=== PATIENT | female | born 1950 | race Caucasian/White ===

== ENCOUNTER 2017-07-02 10:25 | Inpatient (IN) | payer MEDICARE, MEDICAID ==
[~2017-07-02] VITALS: Ht 165.1 cm; Wt 127.0 kg
[~2017-07-02 10:25] MED LIST: AMLO10TA4 PO; FURO-144 PO; HYDR-4077 PO; LOSA50TA21 PO
--- NOTE | 2017-07-02 10:30 | NUR ---
BB PRIVATE AMBULANCE FROM [facility] FOR MALFUNCTIONING CHEST WALL CATH. PT STATES DIALYZED YESTERDAY BUT NOT COMPLETELY. NAD NOTED. PT AAO X3, VSS. RR EVEN AND UNLABORED. DR WAYNE AT BEDSIDE FOR EVAL.
[2017-07-02 10:54] LABS: BASOPHILS # (AUTO) 0.1 /CMM (0.0-0.2); EOSINOPHILS # (AUTO) 0.5 /CMM (0.0-0.7); LYMPHOCYTES # (AUTO) 2.2 /CMM (0.8-4.8); RDW COEFFICIENT OF VARIATION 15.6 (11.5-15.0); WHITE BLOOD COUNT (AUTO) 8.3 K/uL (4.3-11.0)
[2017-07-02 10:55] LABS: BASOPHILS % (AUTO) 0.8 % (0.0-2.0); EOSINOPHILS % (AUTO) 5.4 % (0.0-6.0); HEMATOCRIT 35 % (33-45); HEMOGLOBIN 11.4 g/dL (11.5-14.8); LYMPHOCYTES % (AUTO) 26.3 % (20.0-44.0); MEAN CORPUSCULAR HEMOGLOBIN 30 PG (26.0-33.0); MEAN CORPUSCULAR HGB CONC 33 g/dl (31.0-36.0); MEAN CORPUSCULAR VOLUME 91 fL (82-100); MONOCYTES # (AUTO) 0.8 /CMM (0.1-1.30); NEUTROPHILS # (AUTO) 4.7 /CMM (1.8-8.9); NEUTROPHILS % (AUTO) 58.5 % (43.0-81.0); PLATELET COUNT (AUTO) 254 /CMM (150-450); RED BLOOD CELL COUNT(AUTO) 3.86 MIL/uL (4.0-5.2)
[2017-07-02 11:00] LABS: CALCIUM, SERUM 9.3 mg/dL (8.5-10.1); CREATININE 2.8 mg/dL (0.6-1.3); POTASSIUM 4.3 mmol/L (3.5-5.1)
[2017-07-02 11:05] LABS: INR 0.96 (0.87-1.13)
[2017-07-02] MEDS ORDERED: DEXT15DR6 EACHEYE (11:06)
[2017-07-02] MEDS ORDERED: OMEP20TA5 PO (11:06)
[2017-07-02] MEDS ORDERED: GUAI-959 PO (11:06)
[2017-07-02] MEDS ORDERED: ALLO100T PO (11:06)
[2017-07-02] MEDS ORDERED: SENN-167 PO (11:06)
[2017-07-02] MEDS ORDERED: INSU100V11 SQ (11:06)
[2017-07-02] MEDS ORDERED: DOCU100C36 PO (11:06)
[2017-07-02] MEDS ORDERED: [UNRECOGNIZED DRUG - CODE] MM (11:06)
[2017-07-02] MEDS ORDERED: OLOP2.5D5 EACHEYE (11:06)
[2017-07-02] MEDS ORDERED: METO25TA6 PO (11:06)
[2017-07-02] MEDS ORDERED: FURO40TA5 PO (11:06)
[2017-07-02] MEDS ORDERED: ASPI-1169 PO (11:06)
[2017-07-02] MEDS ORDERED: AMIN30LI2 PO (11:06)
[2017-07-02] MEDS ORDERED: LACT1CAP61 PO (11:06)
[2017-07-02] MEDS ORDERED: ATOR10TA PO (11:06)
[2017-07-02] MEDS ORDERED: ACET-868 PO (11:06)
[2017-07-02] MEDS ORDERED: PENT400T2 PO (11:06)
[2017-07-02] MEDS ORDERED: LACT10SO PO (11:06)
[2017-07-02] MEDS ORDERED: NA P133E RC (11:06)
[2017-07-02] MEDS ORDERED: FOLI0.8T2 PO (11:06)
[2017-07-02] MEDS ORDERED: ONDA4TAB5 PO (11:06)
[2017-07-02] MEDS ORDERED: HYDR100T27 PO (11:06)
[2017-07-02] MEDS ORDERED: INSU3INS6 SQ (11:06)
[2017-07-02] MEDS ORDERED: CHOL100062 PO (11:06)
[2017-07-02 11:07] LABS: ALBUMIN 2.8 g/dL (3.4-5.0); BILIRUBIN,TOTAL 0.2 mg/dL (0.2-1.0); TOTAL PROTEIN, SERUM 7.4 g/dL (6.4-8.2)
--- NOTE | 2017-07-02 11:21 | NUR ---
CALLED [employer], BULK PLANT SUPERVISOR WAS PAGED.
[2017-07-02] MEDS ORDERED: INSULIN REGULAR, HUMAN 100 UNIT/ML 10 ML VIAL ONE (11:28)
[2017-07-02] MEDS ORDERED: INSULIN REGULAR, HUMAN 100 UNIT/ML 10 ML VIAL SQ ONE (11:30)
--- NOTE | 2017-07-02 12:55 | NUR ---
REPORT GIVEN TO PRANEETH BLAIR FOR MALINDA
[2017-07-02] MEDS ORDERED: ACETAMINOPHEN 325 MG TABLET PO PRN ×2 (13:00→13:30)
[2017-07-02] MEDS ORDERED: NA PHOS,M-B/NA PHOS,DI-BA 1 EA ENEMA RC PRN (13:00)
[2017-07-02] MEDS ORDERED: ONDANSETRON HCL/PF 4 MG/2 ML VIAL IVP PRN (13:30)
[2017-07-02] MEDS ORDERED: MAGNESIUM HYDROXIDE 30 ML UDC PO PRN (13:30)
[2017-07-02] MEDS ORDERED: ZOLPIDEM TARTRATE 5 MG TABLET PO PRN (13:30)
[2017-07-02] MEDS ORDERED: Z GUARD REMEDY 2 OZ OINT TP PRN (13:30)
[2017-07-02] MEDS ORDERED: MAG HYDROX/AL HYDROX/SIMETH 30 ML UDC PO PRN (13:30)
[2017-07-02] MEDS ORDERED: HYDROCODONE/APAP 5/325MG 1 EACH TABLET PO PRN (13:30)
--- NOTE | 2017-07-02 13:30 | NUR ---
PATIENT BROUGHT IN FROM ER. NO SOB OR DISTRESS NOTED. PATIENT DENIES PAIN AT THIS TIME. PATIENT ORIENTED TO ROOM AND CALL LIGHT. BELONGINGS CHECKED. BED IN A LOW POSITION, CALL LIGHT WITHIN PATIENT REACH. WILL CONTINUE TO MONITOR.
[2017-07-02] MEDS ORDERED: DEXTROSE 50%-WATER 50 ML DISP.SYRIN IV PRN (14:00)
--- NOTE | 2017-07-02 14:01 | NUR ---
CALLED DR DAMON TO FIND OUT ABOUT PT DIET. STATES TO FOLLOW UP WITH NEPHROLOGY FIRST TO SEE IF THEY WILL BE REPLACING THE DIALYSIS CATH TOADY. CALLED [facility] AND LEFT A MESSAGE WITH DR CLARK. WAITING FOR RETURN CALL.
[2017-07-02] MEDS ORDERED: POLYVINYL ALCOHOL 15 ML BOTTLE EACHEYE PRN (14:30)
[2017-07-02] MEDS ORDERED: LACTULOSE 10 G/15 ML UDC (PYXIS) PO PRN (14:30)
--- NOTE | 2017-07-02 14:44 | NUR ---
AFTER PATIENT HAS CT ABDOMEN, WILL GIVE LACTO MED. Addendum: 07/02/17 at 1445 by PRANEETH ADKINS RN NO CT. WAITING FOR NEPHRO CONSULT
--- NOTE | 2017-07-02 14:51 | NUR ---
CALLED [facility] AGAIN NO MD HAS RETURNED THE CALL. ADVERTISING VICE PRESIDENT STATES SHE WILL PAGE DR GOULD.
[2017-07-02 16:00] VITALS: BP 140/71
[2017-07-02] MEDS: LACTOBACILLUS RHAMNOSUS GG 1 EACH CAP.SPRINK PO SCH (16:27)
[2017-07-02] MEDS: hydrALAZINE HCL 50 MG TABLET PO SCH (16:27)
[2017-07-02] MEDS: METOPROLOL TARTRATE 25 MG TABLET PO SCH (16:28)
[2017-07-02] MEDS: BLOOD SUGAR DIAGNOSTIC 1 EACH STRIP VI SCH ×2 (17:54→21:54)
[2017-07-02] MEDS: INSULIN REGULAR, HUMAN 100 UNIT/ML 3 ML VIAL SQ PRN (17:55)
[2017-07-02] MEDS ORDERED: GUAIFENESIN/D-METHORPHAN HB 5 ML UDC PO PRN (18:00)
[2017-07-02] MEDS ORDERED: ALTEPLASE CATHFLO 2 MG/VIAL IV ONE (18:00)
--- NOTE | 2017-07-02 19:26 | NUR ---
PT NOW RESTING COMFORTABLY IN BED. NO SOB OR DISTRESS. PATIENT REPORTS NO PAIN. BED IN A LOW POSITION, CALL LIGHT WITHIN PATIENT REACH. ENDORSED TO SIOBHAN FOR MALINDA.
--- NOTE | 2017-07-02 19:30 | NUR ---
MS RN NOTE RECEIVED PATIENT AWAKE AND ALERT IN BED. PATIENT DENIES ANY PAIN OR DISCOMFORT. IV SITE INTACT, WITH NO REDNESS NOTED. BED LOCKED AND IN LOWEST POSITION. SIDE RAILS UP, CALL LIGHT WITHIN REACH. WILL CONTINUE TO MONITOR.
[2017-07-02 20:00] VITALS: BP 128/69
--- NOTE | 2017-07-02 20:00 | NUR ---
MS RN NOTE NEW ORDER FROM DR. SEVILLA FOR CONSENT FOR PERMA-CATH PLACEMENT IN AM. WILL PREPARE FORMS AND HAVE PATIENT SIGN. PATIENT WILL BE NPO AFTER MIDNIGHT FOR PROCEDURE.
[2017-07-02] MEDS: PENTOXIFYLLINE 400 MG TABLET.SA PO SCH (21:00)
[2017-07-02] MEDS: *INSULIN REGULAR(HUMULIN R)HUM 100 UNIT/ML VIAL SQ PRN (21:49)
[2017-07-02] MEDS: INSULIN DETEMIR 100 UNIT/ML CARTRIDGE SQ SCH (21:51)
[2017-07-02] MEDS: DOCUSATE SODIUM 100 MG CAPSULE PO SCH (21:54)
[2017-07-02] MEDS: ATORVASTATIN 10 MG TABLET PO SCH (21:54)
[2017-07-02 22:00] VITALS: BP 128/69
[2017-07-03] MEDS: BLOOD SUGAR DIAGNOSTIC 1 EACH STRIP VI SCH ×4 (06:29→22:25)
[2017-07-03] MEDS ORDERED: LIDOCAINE 1% INJ 50 ML MDV IJ ONE (06:34)
[2017-07-03] MEDS ORDERED: HEPARIN SODIUM, PORCINE 1,000 UNIT/ML VIAL ONE (06:34)
[2017-07-03] MEDS ORDERED: ANESTHESIA TRAY IN PYXIS 1 EA TRAY MC ONE (06:34)
--- NOTE | 2017-07-03 06:34 | NUR ---
MS RN NOTE PATIENT STABLE. SHE HAS BEEN NPO SINCE MIDNIGHT FOR PERMA-CATH PLACEMENT. CONSENTS SIGNED AND PLACED IN CHART. BLOOD SUGAR 112. NO COVERAGE NEEDED. ALL NEEDS MET AND ATTENDED TO. WILL ENDORSE TO DAY SHIFT FOR MALINDA.
--- NOTE | 2017-07-03 06:40 | NUR ---
MS RN NOTE PATIENT LEFT FOR PERMA-CATH PLACEMENT IN STABLE CONDITION.
[2017-07-03 06:56] LABS: BASOPHILS # (AUTO) 0.1 /CMM (0.0-0.2); BASOPHILS % (AUTO) 0.6 % (0.0-2.0); EOSINOPHILS # (AUTO) 0.4 /CMM (0.0-0.7); EOSINOPHILS % (AUTO) 4.8 % (0.0-6.0); HEMATOCRIT 34 % (33-45); LYMPHOCYTES # (AUTO) 3.1 /CMM (0.8-4.8); LYMPHOCYTES % (AUTO) 33.4 % (20.0-44.0); MEAN CORPUSCULAR HEMOGLOBIN 30 PG (26.0-33.0); MEAN CORPUSCULAR HGB CONC 33 g/dl (31.0-36.0); MEAN CORPUSCULAR VOLUME 92 fL (82-100); MONOCYTES # (AUTO) 0.8 /CMM (0.1-1.30); MONOCYTES % (AUTO) 9.1 % (2.0-12.0); NEUTROPHILS # (AUTO) 4.9 /CMM (1.8-8.9); NEUTROPHILS % (AUTO) 52.1 % (43.0-81.0); PLATELET COUNT (AUTO) 250 /CMM (150-450); RDW COEFFICIENT OF VARIATION 16.3 (11.5-15.0); RED BLOOD CELL COUNT(AUTO) 3.66 MIL/uL (4.0-5.2); WHITE BLOOD COUNT (AUTO) 9.3 K/uL (4.3-11.0)
[2017-07-03] MEDS ORDERED: FENTANYL PF 100MCG/2ML AMPUL ONE (06:58)
[2017-07-03 07:01] LABS: INR 0.97 (0.87-1.13); PROTHROMBIN TIME 10.1 SECS (9.5-12.7)
[2017-07-03 07:11] LABS: ALBUMIN 2.6 g/dL (3.4-5.0); BILIRUBIN,TOTAL 0.2 mg/dL (0.2-1.0); CALCIUM, SERUM 9.4 mg/dL (8.5-10.1); CREATININE 3.2 mg/dL (0.6-1.3); MAGNESIUM 1.9 mg/dL (1.8-2.4); PHOSPHORUS 4.2 mg/dL (2.5-4.9); POTASSIUM 3.7 mmol/L (3.5-5.1); TOTAL PROTEIN, SERUM 6.8 g/dL (6.4-8.2)
[2017-07-03 07:14] LABS: THYROID STIMULATING HORMONE 3.303 uIU/mL (0.358-3.74)
[2017-07-03 08:00] VITALS: BP 126/63
--- NOTE | 2017-07-03 08:24 | NUR ---
MS RN NOTES PT BACK FROM PROCEDURE IN STABLE CONDITION. VITALS WNL. PERMCATH NOTED ON RIGHT UPPER CHEST WALL. DRESS INTACT. WILL CONTINUE TO MONITOR
[2017-07-03] MEDS: AMLODIPINE BESYLATE 10 MG TABLET PO SCH (09:00)
[2017-07-03] MEDS: hydrALAZINE HCL 50 MG TABLET PO SCH ×2 (09:00→16:23)
[2017-07-03] MEDS: METOPROLOL TARTRATE 25 MG TABLET PO SCH ×2 (09:00→16:24)
[2017-07-03] MEDS: PENTOXIFYLLINE 400 MG TABLET.SA PO SCH ×2 (09:00→21:48)
--- NOTE | 2017-07-03 09:00 | NUR ---
RN NOTE RECEIVED REPORT FROM JOHNNIE MILLER. PATIENT IS COMFORTABLE RESTING IN BED AT THIS TIME. WILL CONTINUE TO MONITOR THROUGHOUT SHIFT
--- NOTE | 2017-07-03 09:10 | NUR ---
MS RN NOTE PATIENT WILL HAVE DIALYSIS TODAY. HELD BP MEDS
[2017-07-03] MEDS: CHOLECALCIFEROL 1,000 UNIT TABLET (VIT D3) PO SCH (10:09)
[2017-07-03] MEDS: ASPIRIN 81 MG TAB.CHEW PO SCH (10:09)
[2017-07-03] MEDS: VIT B CMPLX 3/FA/VIT C/BIOTIN 1 TAB TABLET PO SCH (10:09)
[2017-07-03] MEDS: DOCUSATE SODIUM 100 MG CAPSULE PO SCH ×2 (10:09→21:49)
[2017-07-03] MEDS: ALLOPURINOL 100 MG TABLET PO SCH (10:09)
[2017-07-03] MEDS: LACTOBACILLUS RHAMNOSUS GG 1 EACH CAP.SPRINK PO SCH (10:09)
[2017-07-03] MEDS: INSULIN DETEMIR 100 UNIT/ML CARTRIDGE SQ SCH ×2 (10:19→21:52)
[2017-07-03] MEDS ORDERED: SENNOSIDES 8.6 MG TABLET PO PRN (11:00)
[2017-07-03] MEDS: diphenhydrAMINE HCL ELIX 25 MG/10 ML UDC PO PRN ×2 (11:59→22:22)
[2017-07-03] MEDS: INSULIN REGULAR, HUMAN 100 UNIT/ML 3 ML VIAL SQ PRN ×2 (12:11→17:01)
[2017-07-03] MEDS ORDERED: OLOPATADINE HCL 0.1% OPHTH BOTTLE EACHEYE PRN (13:00)
[2017-07-03 16:00] VITALS: BP 158/78
--- NOTE | 2017-07-03 16:26 | NUR ---
MS RN NOTE HELD BP MEDS. WILL HAVE DIALYSIS
[2017-07-03] MEDS: SENNOSIDES 8.6 MG TABLET PO PRN (16:57)
--- NOTE | 2017-07-03 19:04 | NUR ---
MS RN CLOSING NOTE PATIENT IS ALERT AND ORIENTED x4. NO PAIN AT THIS TIME. NO SOB OR DISTRESS NOTED. CALL LIGHT WITHIN REACH AT ALL TIMES. SAFETY MEASURES IMPLEMENTED. ABLE TO COMMUNICATE NEEDS. HAD PHYSICAL THERAPY TODAY WOULD NEED MAXIMUM ASSISTANCE. ALL DUE MEDICATIONS GIVEN ORDERED. ALL NURSING CARE NEEDS ATTENDED TO NEEDED. CURRENTLY RECEIVING DIALYSIS AT THIS TIME. IV INTACT AND PATENT NO REDNESS OR SWELLING. S/P PERMCATH REPLACEMENT DONE BY DR. SEVILLA 07/03. POSSIBLE DISCHARGE TOMORROW. WILL ENDORSE TO PATIENT ACCOUNTS MANAGER NURSE FOR MALINDA
[2017-07-03 20:00] VITALS: BP 148/77
--- NOTE | 2017-07-03 20:03 | NUR ---
MS2/RN PATIENT IS AWAKE, ALERT, ORIENTED, COMFORTABLE, NO C/O PAIN, NO DISTRESS NOTED, HD IN PROGRESS AT THIS TIME, WILL MONITOR.
--- NOTE | 2017-07-03 21:20 | NUR ---
MS2/SENIOR MARKETING ASSOCIATE IS FINISHED AT THIS TIME. PATIENT IS STABLE. WILL CONTINUE TO MONITOR.
--- NOTE | 2017-07-03 21:26 | NUR ---
Patient resides at [facility] rehab [phone]. She gets her hemodialysis at [facility] dialysis in [facility] every TTHS [phone]. Patient is alert, she requires min-mod assist with adl's. Procedure done today- Removal of old Perm-A-Cath and insertion of a new right IJ Perm-A-Cath tunneled. Plan to dc back to [facility] once discharge. Addendum: 07/03/17 at 2126 by DANELLE HAIDER RN Amended: Links added.
[2017-07-03] MEDS: ATORVASTATIN 10 MG TABLET PO SCH (21:49)
[2017-07-03] MEDS: *INSULIN REGULAR(HUMULIN R)HUM 100 UNIT/ML VIAL SQ PRN (21:51)
--- NOTE | 2017-07-03 22:25 | NUR ---
MS2/RN BENADRYL 10 MLS PO WAS GIVEN FOR C/O ITCHING. WILL CONTINUE TO MONITOR.
--- NOTE | 2017-07-03 23:59 | NUR ---
MS2/RN PATIENT IS SLEEPING AT THIS TIME, AROUSABLE, APPEAR COMFORTABLE, NO SIGNS OF DISTRESS NOTED, CALL LIGHT IN REACH, WILL CONTINUE TO MONITOR.
[2017-07-04] MEDS: INSULIN REGULAR, HUMAN 100 UNIT/ML 3 ML VIAL SQ PRN ×2 (06:35→12:18)
[2017-07-04] MEDS: BLOOD SUGAR DIAGNOSTIC 1 EACH STRIP VI SCH ×2 (06:38→12:16)
--- NOTE | 2017-07-04 06:43 | NUR ---
MS2/RN ACCU CHECK WAS DONE AND COVERED PER SLIDING SCALE. PATIENT SLEEPING BUT EASILY AROUSABLE, NO S/S OF HYPERGLYCEMIA, NO DISTRESS NOTED, ALL NEEDS ATTENDED AT THIS TIME. WILL CONTINUE TO MONITOR.
--- NOTE | 2017-07-04 07:10 | NUR ---
MS RN OPENING NOTES RECEIVED PT FROM NIGHTSHIFT NURSE IN STABLE CONDITION. PT IS A/O X3,. NO SOB OR SIGNS OF DISTRESS NOTED. BREATHING IS EVEN AND UNLABORED. PT IS ON RA AND SATING WELL ABOVE 92%. PERMACATH NOTED TO RIGHT UPPER CHEST WALL. DRESSING CLEAN AND INTACT. IV NOTED TO RIGHT AC HL. IV IS PATENT AND INTACT. NO REDNESS OR SIGNS OF INFILTRATION NOTED. BED IN LOW LOCKED POSITION, SIDE RAILS UP X3, CALL LIGHT WITHIN REACH. WILL CONTINUE TO MONITOR.
[2017-07-04 08:06] VITALS: BP 151/62
[2017-07-04] MEDS: diphenhydrAMINE HCL ELIX 25 MG/10 ML UDC PO PRN (09:22)
[2017-07-04] MEDS: INSULIN DETEMIR 100 UNIT/ML CARTRIDGE SQ SCH (09:22)
[2017-07-04] MEDS: CHOLECALCIFEROL 1,000 UNIT TABLET (VIT D3) PO SCH (10:50)
[2017-07-04] MEDS: PENTOXIFYLLINE 400 MG TABLET.SA PO SCH (10:50)
[2017-07-04] MEDS: DOCUSATE SODIUM 100 MG CAPSULE PO SCH (10:50)
[2017-07-04] MEDS: AMLODIPINE BESYLATE 10 MG TABLET PO SCH (10:56)
[2017-07-04] MEDS: VIT B CMPLX 3/FA/VIT C/BIOTIN 1 TAB TABLET PO SCH (10:57)
[2017-07-04] MEDS: METOPROLOL TARTRATE 25 MG TABLET PO SCH (10:57)
[2017-07-04 10:58] VITALS: BP 177/88
[2017-07-04] MEDS: LACTOBACILLUS RHAMNOSUS GG 1 EACH CAP.SPRINK PO SCH (10:58)
[2017-07-04] MEDS: ASPIRIN 81 MG TAB.CHEW PO SCH (10:58)
[2017-07-04] MEDS: hydrALAZINE HCL 50 MG TABLET PO SCH (10:58)
[2017-07-04] MEDS: ALLOPURINOL 100 MG TABLET PO SCH (10:59)
[2017-07-04] MEDS: SENNOSIDES 8.6 MG TABLET PO PRN (11:06)
--- NOTE | 2017-07-04 11:44 | NUR ---
WOUND CARE CONSULT: PT PRESENTS WITH BILATERAL HEEL ESCHARS AND LEFT LATERAL HEEL SCARRING, PRESENT ON ADMISSION. RECOMMENDATIONS MADE FOR SKIN PROTECTION. DISCUSSED WITH NURSING STAFF. PT STATES HAD GRAFTING SURGERIES ON FEET. WILL SEE PRN. PEREIRA IN AGREEMENT WITH PLAN OF CARE. Addendum: 07/04/17 at 1146 by JOCELIN TAMAYO WNDNU Amended: Links added.
--- NOTE | 2017-07-04 15:45 | NUR ---
MS RN NOTES PT WAS DISCHARGED FROM FACILITY IN STABLE CONDITION. ALL NEEDS WERE MET DURING SHIFT AND ORDERS CARRIED OUT ACCORDINGLY. DISCHARGE INSTRUCTIONS USING EXITCARE PROVIDED TO PATIENT. PT VERBALIZED UNDERSTANDING OF ALL DISCHARGE INSTRUCTIONS AND SIGNED RESPECTIVE PAPERWORK. ALL BELONGINGS WERE TAKEN BY PT. IV SUCCESSFULLY REMOVED WITHOUT ANY ADVERSE COMPLICATION. PERMACATH DRESSING CLEAN AND INTACT. NO REDNESS OR SIGNS OF INFILTRATION NOTED TO OR AROUND SITE. REPORT CALLED AND GIVEN TO STEF SILVA ADMITTING RN AT [facility]. PT LEFT VIA AMBULANCE TRANSPORT IN STABLE CONDITION.
== END 2017-07-04 15:45 | DRG 314 ==
LOC: ER 10:28 → MEDSG2 13:11
PROVIDERS: ADMIT Internal Medicine; ATTEND Internal Medicine
PROC: 5A1D70Z Performance of Urinary Filtration, Intermittent, Less than 6 Hours Per Day (ICD-10-PCS; principal; 2017-07-02)
PROC: 05PY33Z Removal of Infusion Device from Upper Vein, Percutaneous Approach (ICD-10-PCS; 2017-07-03)
PROC: 05HM33Z Insertion of Infusion Device into Right Internal Jugular Vein, Percutaneous Approach (ICD-10-PCS; 2017-07-03)
PROC: B513YZA Fluoroscopy of Right Jugular Veins using Other Contrast, Guidance (ICD-10-PCS; 2017-07-03)
DX: T82.41XA Breakdown (mechanical) of vascular dialysis catheter, initial encounter (principal); N18.6 End stage renal disease; I12.0 Hypertensive chronic kidney disease with stage 5 chronic kidney disease or end stage renal disease; E46 Unspecified protein-calorie malnutrition; E11.22 Type 2 diabetes mellitus with diabetic chronic kidney disease; E11.40 Type 2 diabetes mellitus with diabetic neuropathy, unspecified; Z68.42 Body mass index [BMI] 45.0-49.9, adult; M10.9 Gout, unspecified; Z79.4 Long term (current) use of insulin; Z99.2 Dependence on renal dialysis; D63.8 Anemia in other chronic diseases classified elsewhere; E78.5 Hyperlipidemia, unspecified; E11.621 Type 2 diabetes mellitus with foot ulcer; L97.509 Non-pressure chronic ulcer of other part of unspecified foot with unspecified severity; Y92.129 Unspecified place in nursing home as the place of occurrence of the external cause; Y84.8 Other medical procedures as the cause of abnormal reaction of the patient, or of later complication, without mention of misadventure at the time of the procedure; Y82.8 Other medical devices associated with adverse incidents
CPT/HCPCS: 36415; 71010-TC; 80053-TC; 80061-TC; 82746; 82962-TC; 83540-TC; 83735-TC; 84100-TC; 84443-TC; 85025-TC; 85730-TC; 87040-TC; 87081-TC; 90935-TC; 93307-TC; A4606; A6402; C1750; J1100; J1644; J1815; J2405; J2704; J2997; J3010; J3490; Q0163; Z7610

== ENCOUNTER 2019-02-02 16:56 | Inpatient (IN) | payer MEDICARE, MEDICAID ==
[~2019-02-02] VITALS: Ht 170.2 cm; Wt 106.8 kg
[~2019-02-02 16:56] MED LIST changes: +ACET-868 PO; +ALLO100T PO; +AMIN30LI2 PO; +ASPI-1169 PO; +ATOR10TA PO; +CHOL100062 PO; +DEXT15DR6 EACHEYE; +DOCU100C36 PO; +FOLI0.8T2 PO; -FURO-144 PO; +FURO40TA5 PO; +GUAI-959 PO; -HYDR-4077 PO; +HYDR100T27 PO; +INSU100V11 SQ; +INSU3INS6 SQ; +LACT10SO PO; +LACT1CAP61 PO; -LOSA50TA21 PO; +METO25TA6 PO; +NA P133E RC; +OLOP2.5D5 EACHEYE; +OMEP20TA5 PO; +ONDA4TAB5 PO; +PENT400T17 PO; +SENN-168 PO; +[UNRECOGNIZED DRUG - CODE] MM
[2019-02-02] MEDS ORDERED: ALPR0.255 PO (17:26)
[2019-02-02] MEDS ORDERED: HYDROMORPHONE INJ 2 MG/ML DISP.SYRIN IV ONE (17:30)
[2019-02-02] MEDS ORDERED: ONDANSETRON HCL/PF 4 MG/2 ML VIAL IVP ONE (17:30)
[2019-02-02] MEDS ORDERED: ONDANSETRON HCL/PF 4 MG/2 ML VIAL ONE (17:35)
[2019-02-02] MEDS ORDERED: HYDROMORPHONE 1 MG/1 ML DISP.SYRIN ONE (17:35)
[2019-02-02 17:39] LABS: BASOPHILS % (AUTO) 0.2 % (0.0-2.0); EOSINOPHILS % (AUTO) 0.7 % (0.0-6.0); HEMATOCRIT 29 % (33-45); HEMOGLOBIN 8.9 g/dL (11.5-14.8); LYMPHOCYTES % (AUTO) 6.3 % (20.0-44.0); MEAN CORPUSCULAR HGB CONC 30 g/dl (31.0-36.0); MEAN CORPUSCULAR VOLUME 94 fL (82-100); MONOCYTES # (AUTO) 0.9 /CMM (0.1-1.30); MONOCYTES % (AUTO) 5.8 % (2.0-12.0); NEUTROPHILS # (AUTO) 13.7 /CMM (1.8-8.9); PLATELET COUNT (AUTO) 629 /CMM (150-450); RED BLOOD CELL COUNT(AUTO) 3.11 MIL/uL (4.0-5.2); WHITE BLOOD COUNT (AUTO) 15.8 K/uL (4.3-11.0)
[2019-02-02] MEDS ORDERED: LUBI24CA5 PO (17:39)
[2019-02-02] MEDS ORDERED: LEVO25TA7 PO (17:39)
[2019-02-02] MEDS ORDERED: [UNRECOGNIZED DRUG - CODE] RIGHTEYE (17:39)
[2019-02-02] MEDS ORDERED: APIX5TAB PO (17:39)
[2019-02-02] MEDS ORDERED: SACC250C PO (17:39)
[2019-02-02] MEDS ORDERED: FAMO20TA8 PO (17:39)
[2019-02-02] MEDS ORDERED: BISA10SU61 RC (17:39)
[2019-02-02 17:47] LABS: CALCIUM, SERUM 9.1 mg/dL (8.5-10.1); CREATININE 4.2 mg/dL (0.6-1.3); POTASSIUM 4.6 mmol/L (3.5-5.1)
[2019-02-02] MEDS ORDERED: PRED5DRO16 RIGHTEYE (17:47)
[2019-02-02] MEDS ORDERED: ESCI10TA PO (17:47)
[2019-02-02] MEDS ORDERED: HYDR-4384 PO (17:47)
[2019-02-02] MEDS ORDERED: POLY17PO4 PO (17:47)
[2019-02-02] MEDS ORDERED: SEVE800T8 PO (17:47)
[2019-02-02 17:52] LABS: BILIRUBIN,DIRECT 0.1 mg/dL (0.0-0.2); BILIRUBIN,TOTAL 1.4 mg/dL (0.2-1.0); TOTAL PROTEIN, SERUM 5.9 g/dL (6.4-8.2)
[2019-02-02 17:54] LABS: ALBUMIN 1.3 g/dL (3.4-5.0)
[2019-02-02] MEDS ORDERED: VANCOMYCIN 1 GM in IV D5W 250 ML IV ONE (18:30)
[2019-02-02] MEDS ORDERED: ZOLPIDEM TARTRATE 5 MG TABLET PO PRN (19:00)
[2019-02-02] MEDS ORDERED: MAG HYDROX/AL HYDROX/SIMETH 30 ML UDC PO PRN (19:00)
[2019-02-02] MEDS ORDERED: MAGNESIUM HYDROXIDE 30 ML UDC PO PRN (19:00)
[2019-02-02] MEDS ORDERED: ONDANSETRON HCL/PF 4 MG/2 ML VIAL IVP PRN (19:00)
[2019-02-02] MEDS ORDERED: Z GUARD REMEDY 2 OZ OINT TP PRN (19:00)
[2019-02-02] MEDS ORDERED: ACETAMINOPHEN 325 MG TABLET PO PRN (19:00)
[2019-02-02] MEDS ORDERED: Medication Not On Formulary EA (Ondansetron Hcl (Zofran) 4 MG) PO SCH (20:00)
[2019-02-02] MEDS ORDERED: POLYVINYL ALCOHOL 15 ML BOTTLE EACHEYE PRN (20:30)
[2019-02-02] MEDS ORDERED: LACTULOSE 10 G/15 ML UDC (PYXIS) PO PRN (20:30)
[2019-02-02 20:45] VITALS: BP 129/77
[2019-02-02] MEDS ORDERED: CEFTRIAXONE 1 G in IV D5W 50 ML IV SCH (21:00)
[2019-02-02 22:10] VITALS: BP 129/77
[2019-02-02] MEDS ORDERED: CEFTRIAXONE 1 G VIAL ONE (22:25)
[2019-02-02] MEDS: DOCUSATE SODIUM 100 MG CAPSULE PO SCH (22:48)
[2019-02-02] MEDS: ATORVASTATIN 10 MG TABLET PO SCH (22:48)
[2019-02-02] MEDS: HYDROCODONE/APAP 5/325MG 1 EACH TABLET PO PRN (22:49)
[2019-02-02] MEDS: INSULIN GLARGINE, 100 UNIT/ML CARTRIDGE SQ SCH (23:20)
[2019-02-03] MEDS ORDERED: INSULIN GLARGINE, 100 UNIT/ML CARTRIDGE SQ ONE (00:37)
[2019-02-03 06:59] LABS: BASOPHILS # (AUTO) 0.1 /CMM (0.0-0.2); BASOPHILS % (AUTO) 0.4 % (0.0-2.0); EOSINOPHILS % (AUTO) 2.6 % (0.0-6.0); HEMATOCRIT 28 % (33-45); HEMOGLOBIN 8.5 g/dL (11.5-14.8); LYMPHOCYTES # (AUTO) 1.5 /CMM (0.8-4.8); LYMPHOCYTES % (AUTO) 9.4 % (20.0-44.0); MEAN CORPUSCULAR HGB CONC 30 g/dl (31.0-36.0); MEAN CORPUSCULAR VOLUME 95 fL (82-100); MONOCYTES # (AUTO) 1.1 /CMM (0.1-1.30); MONOCYTES % (AUTO) 7.3 % (2.0-12.0); NEUTROPHILS # (AUTO) 12.5 /CMM (1.8-8.9); NEUTROPHILS % (AUTO) 80.3 % (43.0-81.0); PLATELET COUNT (AUTO) 549 /CMM (150-450); RED BLOOD CELL COUNT(AUTO) 2.96 MIL/uL (4.0-5.2); WHITE BLOOD COUNT (AUTO) 15.6 K/uL (4.3-11.0)
[2019-02-03 07:22] LABS: CALCIUM, SERUM 9.1 mg/dL (8.5-10.1); CREATININE 4.5 mg/dL (0.6-1.3); MAGNESIUM 2.6 mg/dL (1.8-2.4); PHOSPHORUS 5.9 mg/dL (2.5-4.9); POTASSIUM 4.4 mmol/L (3.5-5.1)
[2019-02-03] MEDS ORDERED: PANTOPRAZOLE 40 MG TABLET.DR PO SCH (07:30)
[2019-02-03] MEDS: ALPRAZOLAM 0.25 MG TABLET PO SCH ×3 (07:39→17:22)
[2019-02-03] MEDS: LEVOTHYROXINE SODIUM 25 MCG TABLET PO SCH (07:39)
[2019-02-03] MEDS: MORPHINE SULFATE INJ 2 MG/ML DISP.SYRIN IVP PRN ×4 (07:42→21:58)
[2019-02-03 08:00] VITALS: BP 106/66
[2019-02-03] MEDS: SEVELAMER CARBONATE 800 MG TABLET PO SCH ×3 (08:45→16:42)
[2019-02-03 09:00] VITALS: BP 112/67
[2019-02-03] MEDS ORDERED: Medication Not On Formulary EA (Lubiprostone (Amitiza) 24 MCG) PO SCH (09:00)
[2019-02-03] MEDS ORDERED: Medication Not On Formulary EA (Bromfenac Sodium 1 DROP) RIGHTEYE SCH (09:00)
[2019-02-03] MEDS: INSULIN GLARGINE, 100 UNIT/ML CARTRIDGE SQ SCH ×2 (09:00→21:00)
[2019-02-03] MEDS: ESCITALOPRAM OXALATE (10 MG) 10 MG TABLET PO SCH (09:14)
[2019-02-03] MEDS: CHOLECALCIFEROL 1,000 UNIT TABLET (VIT D3) PO SCH (09:14)
[2019-02-03] MEDS: VIT B CMPLX 3/FA/VIT C/BIOTIN 1 TAB TABLET PO SCH (09:14)
[2019-02-03] MEDS: PENTOXIFYLLINE 400 MG TABLET.SA PO SCH ×2 (09:15→16:42)
[2019-02-03] MEDS: AMLODIPINE BESYLATE 10 MG TABLET PO SCH (09:15)
[2019-02-03] MEDS: DOCUSATE SODIUM 100 MG CAPSULE PO SCH ×2 (09:15→21:00)
[2019-02-03] MEDS: hydrALAZINE HCL 50 MG TABLET PO SCH ×2 (09:16→16:42)
[2019-02-03] MEDS: ASPIRIN 81 MG TAB.CHEW PO SCH (09:16)
[2019-02-03] MEDS: LACTOBACILLUS RHAMNOSUS GG 1 EACH CAP.SPRINK PO SCH ×2 (09:17→16:43)
[2019-02-03] MEDS: FAMOTIDINE (20 MG) 20 MG TABLET PO SCH (09:17)
[2019-02-03] MEDS: BISACODYL SUPP (10 MG) 10 MG/SUPP.RECT SUPP.RECT RC SCH (09:18)
[2019-02-03] MEDS: POLYETHYLENE GLYCOL 3350 17 GM POWD.PACK PO SCH ×2 (09:19→09:20)
[2019-02-03] MEDS: APIXABAN 2.5 MG TABLET PO SCH ×2 (09:53→16:44)
[2019-02-03] MEDS: HYDROCODONE/APAP 5/325MG 1 EACH TABLET PO PRN (10:27)
[2019-02-03 15:52] LABS: APPEARANCE,URINE TURBID (CLEAR)
[2019-02-03 15:53] LABS: PROTEIN,URINE 4+ mg/dl (NEGATIVE); UGLUCOSE 100 MG/DL mg/dL (NEGATIVE)
[2019-02-03 15:54] LABS: BILIRUBIN,URINE NEGATIVE (NEGATIVE); BLOOD, URINE 3+ Ery/uL (NEGATIVE); KETONES,URINE 2+ (NEGATIVE); NITRITE, URINE NEGATIVE (NEGATIVE); UROBILINOGEN,URINE 0.2 EU/dL (0.2)
[2019-02-03 15:55] LABS: COLOR,URINE Greenish yellow (YELLOW); LEUKOCYTE ESTERASE ,URINE 3+ (NEGATIVE)
[2019-02-03] MEDS: HYDROGEL DRESSING 90 GM TUBE TP SCH ×2 (15:57→21:01)
[2019-02-03 16:00] VITALS: BP 115/71
[2019-02-03 16:05] LABS: WBC,URINE TOO NUMEROUS TO COUN /HPF (0-3)
[2019-02-03 16:06] LABS: SQUAMOUS EPITHELIAL CELL,UR Few /HPF (None Seen)
[2019-02-03 16:07] LABS: BACTERIA,URINE Moderate /HPF (None Seen)
[2019-02-03] MEDS: CLOTRIMAZOLE 1% 15 GM TUBE TP SCH ×2 (16:56→17:00)
[2019-02-03] MEDS ORDERED: DEXTROSE 50%-WATER 50 ML DISP.SYRIN IV PRN (17:00)
[2019-02-03] MEDS: BLOOD SUGAR DIAGNOSTIC 1 EACH STRIP IN SCH ×2 (17:22→21:16)
[2019-02-03] MEDS ORDERED: INSULIN ASPART/LISPRO 100 UNIT/ML CARTRIDGE SQ PRN (17:30)
[2019-02-03 20:00] VITALS: BP 110/55
[2019-02-03] MEDS: ATORVASTATIN 10 MG TABLET PO SCH (21:00)
[2019-02-03] MEDS: INSULIN REGULAR, HUMAN 100 UNIT/ML 3 ML VIAL SQ PRN (21:16)
[2019-02-04] MEDS: MORPHINE SULFATE INJ 2 MG/ML DISP.SYRIN IVP PRN ×2 (05:09→13:26)
[2019-02-04 06:21] LABS: BASOPHILS % (AUTO) 0.3 % (0.0-2.0); EOSINOPHILS % (AUTO) 1.9 % (0.0-6.0); HEMATOCRIT 28 % (33-45); HEMOGLOBIN 8.4 g/dL (11.5-14.8); LYMPHOCYTES # (AUTO) 1.5 /CMM (0.8-4.8); LYMPHOCYTES % (AUTO) 8.9 % (20.0-44.0); MEAN CORPUSCULAR HGB CONC 30 g/dl (31.0-36.0); MEAN CORPUSCULAR VOLUME 94 fL (82-100); MONOCYTES # (AUTO) 1.2 /CMM (0.1-1.30); MONOCYTES % (AUTO) 7.2 % (2.0-12.0); NEUTROPHILS # (AUTO) 13.4 /CMM (1.8-8.9); NEUTROPHILS % (AUTO) 81.7 % (43.0-81.0); PLATELET COUNT (AUTO) 557 /CMM (150-450); RED BLOOD CELL COUNT(AUTO) 2.93 MIL/uL (4.0-5.2); WHITE BLOOD COUNT (AUTO) 16.4 K/uL (4.3-11.0)
[2019-02-04] MEDS: BLOOD SUGAR DIAGNOSTIC 1 EACH STRIP IN SCH ×4 (06:36→21:10)
[2019-02-04] MEDS: INSULIN REGULAR, HUMAN 100 UNIT/ML 3 ML VIAL SQ PRN ×2 (06:37→12:41)
[2019-02-04 06:48] LABS: CALCIUM, SERUM 8.8 mg/dL (8.5-10.1); CREATININE 4.8 mg/dL (0.6-1.3); MAGNESIUM 2.5 mg/dL (1.8-2.4); PHOSPHORUS 5.7 mg/dL (2.5-4.9); POTASSIUM 4.5 mmol/L (3.5-5.1)
[2019-02-04 08:00] VITALS: BP 112/56
[2019-02-04] MEDS: LEVOTHYROXINE SODIUM 25 MCG TABLET PO SCH (08:28)
[2019-02-04] MEDS: VIT B CMPLX 3/FA/VIT C/BIOTIN 1 TAB TABLET PO SCH (08:47)
[2019-02-04] MEDS: ESCITALOPRAM OXALATE (10 MG) 10 MG TABLET PO SCH (08:47)
[2019-02-04] MEDS: FAMOTIDINE (20 MG) 20 MG TABLET PO SCH (08:47)
[2019-02-04] MEDS: DOCUSATE SODIUM 100 MG CAPSULE PO SCH ×2 (08:47→21:12)
[2019-02-04] MEDS: LACTOBACILLUS RHAMNOSUS GG 1 EACH CAP.SPRINK PO SCH ×2 (08:47→17:00)
[2019-02-04] MEDS: ALPRAZOLAM 0.25 MG TABLET PO SCH ×3 (08:47→18:00)
[2019-02-04] MEDS: CHOLECALCIFEROL 1,000 UNIT TABLET (VIT D3) PO SCH (08:48)
[2019-02-04] MEDS: PENTOXIFYLLINE 400 MG TABLET.SA PO SCH ×2 (08:48→17:00)
[2019-02-04] MEDS: ASPIRIN 81 MG TAB.CHEW PO SCH (08:48)
[2019-02-04] MEDS: hydrALAZINE HCL 50 MG TABLET PO SCH ×2 (08:49→17:00)
[2019-02-04] MEDS: AMLODIPINE BESYLATE 10 MG TABLET PO SCH (08:49)
[2019-02-04] MEDS: HYDROGEL DRESSING 90 GM TUBE TP SCH ×2 (08:52→21:11)
[2019-02-04] MEDS: BISACODYL SUPP (10 MG) 10 MG/SUPP.RECT SUPP.RECT RC SCH (08:52)
[2019-02-04] MEDS: INSULIN GLARGINE, 100 UNIT/ML CARTRIDGE SQ SCH ×2 (09:00→21:00)
[2019-02-04] MEDS: APIXABAN 2.5 MG TABLET PO SCH ×2 (09:05→17:00)
[2019-02-04] MEDS: CLOTRIMAZOLE 1% 15 GM TUBE TP SCH ×2 (09:05→17:00)
[2019-02-04] MEDS: DAKINS HALF STRENGTH (0.25%) 480 ML BOTTLE TOP SCH (09:06)
[2019-02-04] MEDS: HYDROCODONE/APAP 5/325MG 1 EACH TABLET PO PRN (09:08)
[2019-02-04] MEDS: SEVELAMER CARBONATE 800 MG TABLET PO SCH ×3 (09:21→17:00)
[2019-02-04] MEDS ORDERED: EPOETIN ALFA (10,000 UNIT) 10,000 UNIT/ML VIAL SQ ONE (15:00)
[2019-02-04 16:00] VITALS: BP 106/41
[2019-02-04] MEDS: PROSOURCE / PROSTAT (PYXIS) 30 ML UDC GT SCH (17:00)
[2019-02-04] MEDS ORDERED: NEPRO VAN 237 ML CAN PO PRN (17:00)
[2019-02-04] MEDS ORDERED: ALBUMIN 25% 25 GM in PREMIX 1 EA IV PRN (18:30)
[2019-02-04] MEDS ORDERED: VANCOMYCIN 500 MG in IV D5W 100 ML IV PRN (19:00)
[2019-02-04] MEDS ORDERED: FEE PK DOSING 1 MIN EA MC ONE (19:04)
[2019-02-04 20:00] VITALS: BP 107/55
[2019-02-04] MEDS ORDERED: VANCOMYCIN 1.25 GM in IV D5W 500 ML IV ONE (20:00)
[2019-02-04] MEDS ORDERED: oxyCODONE IR immediate release 5 MG PO PRN (20:00)
[2019-02-04] MEDS ORDERED: VANCOMYCIN 1 GM in IV D5W 250 ML IV ONE (20:00)
[2019-02-04] MEDS: MEROPENEM 500 MG in IV NS 0.9% 50 ML IV SCH (20:59)
[2019-02-04] MEDS: METHOCARBAMOL (500MG) 500 MG TABLET PO SCH (20:59)
[2019-02-04] MEDS: oxyCODONE IR immediate release 5 MG PO PRN (22:20)
[2019-02-04] MEDS: ATORVASTATIN 10 MG TABLET PO SCH (22:20)
[2019-02-05] MEDS: ACETAMINOPHEN 325 MG TABLET PO SCH ×4 (00:50→23:22)
[2019-02-05] MEDS: oxyCODONE IR immediate release 5 MG PO PRN (06:23)
[2019-02-05] MEDS: BLOOD SUGAR DIAGNOSTIC 1 EACH STRIP IN SCH ×4 (06:24→21:39)
[2019-02-05] MEDS: INSULIN REGULAR, HUMAN 100 UNIT/ML 3 ML VIAL SQ PRN ×3 (06:31→16:56)
[2019-02-05 07:16] LABS: BASOPHILS # (AUTO) 0.2 /CMM (0.0-0.2); BASOPHILS % (AUTO) 1.1 % (0.0-2.0); EOSINOPHILS % (AUTO) 0.7 % (0.0-6.0); HEMATOCRIT 26 % (33-45); HEMOGLOBIN 8.3 g/dL (11.5-14.8); LYMPHOCYTES # (AUTO) 0.7 /CMM (0.8-4.8); LYMPHOCYTES % (AUTO) 4.2 % (20.0-44.0); MEAN CORPUSCULAR HGB CONC 32 g/dl (31.0-36.0); MEAN CORPUSCULAR VOLUME 93 fL (82-100); MONOCYTES # (AUTO) 1.1 /CMM (0.1-1.30); MONOCYTES % (AUTO) 7.3 % (2.0-12.0); NEUTROPHILS # (AUTO) 13.5 /CMM (1.8-8.9); NEUTROPHILS % (AUTO) 86.7 % (43.0-81.0); PLATELET COUNT (AUTO) 476 /CMM (150-450); RED BLOOD CELL COUNT(AUTO) 2.83 MIL/uL (4.0-5.2); WHITE BLOOD COUNT (AUTO) 15.6 K/uL (4.3-11.0)
[2019-02-05 07:55] LABS: CALCIUM, SERUM 8.8 mg/dL (8.5-10.1); CREATININE 3.5 mg/dL (0.6-1.3); MAGNESIUM 2.2 mg/dL (1.8-2.4); PHOSPHORUS 4.6 mg/dL (2.5-4.9); POTASSIUM 4.4 mmol/L (3.5-5.1)
[2019-02-05 08:00] VITALS: BP 113/70
[2019-02-05] MEDS: SEVELAMER CARBONATE 800 MG TABLET PO SCH ×3 (08:00→16:14)
[2019-02-05] MEDS: LEVOTHYROXINE SODIUM 25 MCG TABLET PO SCH (08:00)
[2019-02-05] MEDS: METHOCARBAMOL (500MG) 500 MG TABLET PO SCH ×3 (08:01→16:15)
[2019-02-05] MEDS: VIT B CMPLX 3/FA/VIT C/BIOTIN 1 TAB TABLET PO SCH (08:01)
[2019-02-05] MEDS: CHOLECALCIFEROL 1,000 UNIT TABLET (VIT D3) PO SCH (08:01)
[2019-02-05] MEDS: FAMOTIDINE (20 MG) 20 MG TABLET PO SCH (08:01)
[2019-02-05] MEDS: LACTOBACILLUS RHAMNOSUS GG 1 EACH CAP.SPRINK PO SCH ×2 (08:01→16:15)
[2019-02-05] MEDS: PENTOXIFYLLINE 400 MG TABLET.SA PO SCH ×2 (08:01→16:15)
[2019-02-05] MEDS: ALPRAZOLAM 0.25 MG TABLET PO SCH ×3 (08:01→17:30)
[2019-02-05] MEDS: ESCITALOPRAM OXALATE (10 MG) 10 MG TABLET PO SCH (08:01)
[2019-02-05] MEDS: ASPIRIN 81 MG TAB.CHEW PO SCH (08:01)
[2019-02-05] MEDS: APIXABAN 2.5 MG TABLET PO SCH ×2 (08:02→16:15)
[2019-02-05] MEDS: INSULIN GLARGINE, 100 UNIT/ML CARTRIDGE SQ SCH ×2 (08:06→21:00)
[2019-02-05] MEDS: CLOTRIMAZOLE 1% 15 GM TUBE TP SCH ×2 (08:06→16:44)
[2019-02-05] MEDS: HYDROGEL DRESSING 90 GM TUBE TP SCH ×2 (08:07→21:42)
[2019-02-05] MEDS: DAKINS HALF STRENGTH (0.25%) 480 ML BOTTLE TOP SCH (08:07)
[2019-02-05] MEDS: BISACODYL SUPP (10 MG) 10 MG/SUPP.RECT SUPP.RECT RC SCH (08:15)
[2019-02-05] MEDS: AMLODIPINE BESYLATE 10 MG TABLET PO SCH (08:16)
[2019-02-05] MEDS: POLYETHYLENE GLYCOL 3350 17 GM POWD.PACK PO SCH (08:16)
[2019-02-05] MEDS: DOCUSATE SODIUM 100 MG CAPSULE PO SCH ×2 (08:17→21:00)
[2019-02-05] MEDS: hydrALAZINE HCL 50 MG TABLET PO SCH ×2 (08:17→16:20)
[2019-02-05] MEDS: PROSOURCE / PROSTAT (PYXIS) 30 ML UDC GT SCH ×3 (08:19→16:20)
[2019-02-05] MEDS: MEROPENEM 500 MG in IV NS 0.9% 50 ML IV SCH ×2 (09:35→21:34)
[2019-02-05 10:03] LABS: LYMPHOCYTES % (MANUAL) 8 % (16-48); MONOCYTES % (MANUAL) 2 % (0-11.0); NEUTROPHILS % (MANUAL) 90 (42-76)
[2019-02-05 16:00] VITALS: BP 107/62
[2019-02-05 20:00] VITALS: BP 99/57
[2019-02-05] MEDS: ATORVASTATIN 10 MG TABLET PO SCH (21:43)
[2019-02-06] MEDS: oxyCODONE IR immediate release 5 MG PO PRN (04:53)
[2019-02-06 07:33] LABS: BASOPHILS # (AUTO) 0.1 /CMM (0.0-0.2); BASOPHILS % (AUTO) 0.5 % (0.0-2.0); EOSINOPHILS % (AUTO) 1.7 % (0.0-6.0); HEMATOCRIT 30 % (33-45); LYMPHOCYTES # (AUTO) 0.8 /CMM (0.8-4.8); LYMPHOCYTES % (AUTO) 5.2 % (20.0-44.0); MEAN CORPUSCULAR HGB CONC 30 g/dl (31.0-36.0); MEAN CORPUSCULAR VOLUME 95 fL (82-100); MONOCYTES # (AUTO) 0.8 /CMM (0.1-1.30); MONOCYTES % (AUTO) 5.5 % (2.0-12.0); NEUTROPHILS # (AUTO) 13.1 /CMM (1.8-8.9); NEUTROPHILS % (AUTO) 87.1 % (43.0-81.0); PLATELET COUNT (AUTO) 588 /CMM (150-450); RED BLOOD CELL COUNT(AUTO) 3.21 MIL/uL (4.0-5.2); WHITE BLOOD COUNT (AUTO) 15.1 K/uL (4.3-11.0)
[2019-02-06 07:45] LABS: CALCIUM, SERUM 9.1 mg/dL (8.5-10.1); CREATININE 3.8 mg/dL (0.6-1.3); MAGNESIUM 2.3 mg/dL (1.8-2.4); PHOSPHORUS 4.7 mg/dL (2.5-4.9); POTASSIUM 4.1 mmol/L (3.5-5.1)
[2019-02-06 08:00] VITALS: BP 100/50
[2019-02-06] MEDS: BLOOD SUGAR DIAGNOSTIC 1 EACH STRIP IN SCH ×4 (08:10→21:13)
[2019-02-06] MEDS: hydrALAZINE HCL 50 MG TABLET PO SCH ×2 (08:10→16:27)
[2019-02-06] MEDS: AMLODIPINE BESYLATE 10 MG TABLET PO SCH (08:11)
[2019-02-06] MEDS: INSULIN GLARGINE, 100 UNIT/ML CARTRIDGE SQ SCH ×2 (08:20→21:00)
[2019-02-06] MEDS: POLYETHYLENE GLYCOL 3350 17 GM POWD.PACK PO SCH (08:25)
[2019-02-06] MEDS: VIT B CMPLX 3/FA/VIT C/BIOTIN 1 TAB TABLET PO SCH (08:25)
[2019-02-06] MEDS: PROSOURCE / PROSTAT (PYXIS) 30 ML UDC GT SCH ×3 (08:25→16:34)
[2019-02-06] MEDS: ESCITALOPRAM OXALATE (10 MG) 10 MG TABLET PO SCH (08:25)
[2019-02-06] MEDS: LEVOTHYROXINE SODIUM 25 MCG TABLET PO SCH (08:25)
[2019-02-06] MEDS: SEVELAMER CARBONATE 800 MG TABLET PO SCH ×3 (08:25→16:35)
[2019-02-06] MEDS: PENTOXIFYLLINE 400 MG TABLET.SA PO SCH ×2 (08:25→16:35)
[2019-02-06] MEDS: MEROPENEM 500 MG in IV NS 0.9% 50 ML IV SCH (08:25)
[2019-02-06] MEDS: ASPIRIN 81 MG TAB.CHEW PO SCH (08:25)
[2019-02-06] MEDS: METHOCARBAMOL (500MG) 500 MG TABLET PO SCH ×3 (08:25→16:35)
[2019-02-06] MEDS: LACTOBACILLUS RHAMNOSUS GG 1 EACH CAP.SPRINK PO SCH ×2 (08:25→16:35)
[2019-02-06] MEDS: DOCUSATE SODIUM 100 MG CAPSULE PO SCH ×2 (08:25→21:00)
[2019-02-06] MEDS: CHOLECALCIFEROL 1,000 UNIT TABLET (VIT D3) PO SCH (08:25)
[2019-02-06] MEDS: ALPRAZOLAM 0.25 MG TABLET PO SCH ×3 (08:25→17:32)
[2019-02-06] MEDS: ACETAMINOPHEN 325 MG TABLET PO SCH ×2 (08:25→16:35)
[2019-02-06] MEDS: DAKINS HALF STRENGTH (0.25%) 480 ML BOTTLE TOP SCH (08:26)
[2019-02-06] MEDS: HYDROGEL DRESSING 90 GM TUBE TP SCH ×2 (08:26→21:16)
[2019-02-06] MEDS: FAMOTIDINE (20 MG) 20 MG TABLET PO SCH (08:26)
[2019-02-06] MEDS: CLOTRIMAZOLE 1% 15 GM TUBE TP SCH ×2 (08:27→16:36)
[2019-02-06] MEDS: BISACODYL SUPP (10 MG) 10 MG/SUPP.RECT SUPP.RECT RC SCH (08:27)
[2019-02-06] MEDS: APIXABAN 2.5 MG TABLET PO SCH ×2 (08:30→16:35)
[2019-02-06 16:00] VITALS: BP 100/51
[2019-02-06] MEDS ORDERED: FEE PK DOSING 1 MIN EA MC ONE (16:51)
[2019-02-06] MEDS ORDERED: DOSING PER PHARMACY-AMIKACI IV XX PRN (17:00)
[2019-02-06] MEDS ORDERED: D5W IV ONE (18:00)
[2019-02-06] MEDS ORDERED: AMIKACIN IV ONE (18:00)
[2019-02-06 20:00] VITALS: BP 115/65
[2019-02-06 20:09] VITALS: BP 115/65
[2019-02-06] MEDS: LINEZOLID 600 MG TABLET PO SCH (21:13)
[2019-02-06] MEDS: ATORVASTATIN 10 MG TABLET PO SCH (21:13)
[2019-02-07] MEDS: ACETAMINOPHEN 325 MG TABLET PO SCH ×3 (00:22→16:50)
[2019-02-07] MEDS: oxyCODONE IR immediate release 5 MG PO PRN (03:53)
[2019-02-07 07:11] LABS: BASOPHILS % (AUTO) 0.1 % (0.0-2.0); EOSINOPHILS % (AUTO) 1.9 % (0.0-6.0); HEMATOCRIT 27 % (33-45); HEMOGLOBIN 8.1 g/dL (11.5-14.8); LYMPHOCYTES # (AUTO) 0.7 /CMM (0.8-4.8); LYMPHOCYTES % (AUTO) 4.4 % (20.0-44.0); MEAN CORPUSCULAR HGB CONC 30 g/dl (31.0-36.0); MEAN CORPUSCULAR VOLUME 94 fL (82-100); MONOCYTES # (AUTO) 1.1 /CMM (0.1-1.30); NEUTROPHILS # (AUTO) 13.3 /CMM (1.8-8.9); NEUTROPHILS % (AUTO) 86.6 % (43.0-81.0); PLATELET COUNT (AUTO) 486 /CMM (150-450); RED BLOOD CELL COUNT(AUTO) 2.82 MIL/uL (4.0-5.2); WHITE BLOOD COUNT (AUTO) 15.4 K/uL (4.3-11.0)
[2019-02-07 07:24] LABS: CALCIUM, SERUM 8.7 mg/dL (8.5-10.1); CREATININE 3.1 mg/dL (0.6-1.3); MAGNESIUM 2.1 mg/dL (1.8-2.4); PHOSPHORUS 4.2 mg/dL (2.5-4.9); POTASSIUM 3.7 mmol/L (3.5-5.1)
[2019-02-07] MEDS: BLOOD SUGAR DIAGNOSTIC 1 EACH STRIP IN SCH ×4 (07:30→21:45)
[2019-02-07 08:00] VITALS: BP 106/61
[2019-02-07] MEDS: LEVOTHYROXINE SODIUM 25 MCG TABLET PO SCH (08:56)
[2019-02-07] MEDS: ALPRAZOLAM 0.25 MG TABLET PO SCH ×3 (08:57→17:00)
[2019-02-07] MEDS: PROSOURCE / PROSTAT (PYXIS) 30 ML UDC GT SCH ×3 (08:58→16:50)
[2019-02-07] MEDS: hydrALAZINE HCL 50 MG TABLET PO SCH ×2 (08:59→17:00)
[2019-02-07] MEDS: LACTOBACILLUS RHAMNOSUS GG 1 EACH CAP.SPRINK PO SCH ×2 (09:00→16:50)
[2019-02-07] MEDS: ASPIRIN 81 MG TAB.CHEW PO SCH (09:00)
[2019-02-07] MEDS: INSULIN GLARGINE, 100 UNIT/ML CARTRIDGE SQ SCH ×2 (09:00→21:00)
[2019-02-07] MEDS: DOCUSATE SODIUM 100 MG CAPSULE PO SCH ×2 (09:00→21:00)
[2019-02-07] MEDS: ESCITALOPRAM OXALATE (10 MG) 10 MG TABLET PO SCH (09:01)
[2019-02-07] MEDS: VIT B CMPLX 3/FA/VIT C/BIOTIN 1 TAB TABLET PO SCH (09:01)
[2019-02-07] MEDS: POLYETHYLENE GLYCOL 3350 17 GM POWD.PACK PO SCH (09:01)
[2019-02-07] MEDS: FAMOTIDINE (20 MG) 20 MG TABLET PO SCH (09:02)
[2019-02-07] MEDS: BISACODYL SUPP (10 MG) 10 MG/SUPP.RECT SUPP.RECT RC SCH (09:02)
[2019-02-07] MEDS: SEVELAMER CARBONATE 800 MG TABLET PO SCH ×3 (09:02→16:59)
[2019-02-07] MEDS: AMLODIPINE BESYLATE 10 MG TABLET PO SCH (09:02)
[2019-02-07] MEDS: PENTOXIFYLLINE 400 MG TABLET.SA PO SCH ×2 (09:02→16:50)
[2019-02-07] MEDS: METHOCARBAMOL (500MG) 500 MG TABLET PO SCH ×3 (09:02→16:50)
[2019-02-07] MEDS: CHOLECALCIFEROL 1,000 UNIT TABLET (VIT D3) PO SCH (09:02)
[2019-02-07] MEDS: LINEZOLID 600 MG TABLET PO SCH ×2 (09:07→21:00)
[2019-02-07] MEDS: APIXABAN 2.5 MG TABLET PO SCH ×2 (09:08→16:59)
[2019-02-07] MEDS: HYDROGEL DRESSING 90 GM TUBE TP SCH ×2 (09:13→21:44)
[2019-02-07] MEDS: DAKINS HALF STRENGTH (0.25%) 480 ML BOTTLE TOP SCH (09:13)
[2019-02-07] MEDS: CLOTRIMAZOLE 1% 15 GM TUBE TP SCH ×2 (09:13→16:59)
[2019-02-07] MEDS: INSULIN REGULAR, HUMAN 100 UNIT/ML 3 ML VIAL SQ PRN (13:06)
[2019-02-07] MEDS: MORPHINE SULFATE INJ 2 MG/ML DISP.SYRIN IVP PRN (15:40)
[2019-02-07 16:00] VITALS: BP 97/52
[2019-02-07] MEDS ORDERED: AMIKACIN 500 MG in IV D5W 100 ML IV PRN (17:00)
[2019-02-07 20:19] VITALS: BP 90/40
[2019-02-07] MEDS: ATORVASTATIN 10 MG TABLET PO SCH (21:45)
[2019-02-08] MEDS: ACETAMINOPHEN 325 MG TABLET PO SCH ×3 (00:09→17:45)
[2019-02-08] MEDS: oxyCODONE IR immediate release 5 MG PO PRN (03:26)
[2019-02-08 07:15] LABS: CALCIUM, SERUM 8.6 mg/dL (8.5-10.1); CREATININE 3.8 mg/dL (0.6-1.3); POTASSIUM 3.9 mmol/L (3.5-5.1)
[2019-02-08] MEDS: BLOOD SUGAR DIAGNOSTIC 1 EACH STRIP IN SCH ×4 (07:30→21:41)
[2019-02-08 08:00] VITALS: BP 104/50
[2019-02-08] MEDS: INSULIN GLARGINE, 100 UNIT/ML CARTRIDGE SQ SCH ×2 (09:00→21:00)
[2019-02-08] MEDS: hydrALAZINE HCL 50 MG TABLET PO SCH ×2 (09:00→17:00)
[2019-02-08] MEDS: AMLODIPINE BESYLATE 10 MG TABLET PO SCH (09:00)
[2019-02-08] MEDS: METHOCARBAMOL (500MG) 500 MG TABLET PO SCH ×3 (09:17→17:45)
[2019-02-08] MEDS: BISACODYL SUPP (10 MG) 10 MG/SUPP.RECT SUPP.RECT RC SCH (09:17)
[2019-02-08] MEDS: ESCITALOPRAM OXALATE (10 MG) 10 MG TABLET PO SCH (09:18)
[2019-02-08] MEDS: ALPRAZOLAM 0.25 MG TABLET PO SCH ×3 (09:18→17:45)
[2019-02-08] MEDS: DOCUSATE SODIUM 100 MG CAPSULE PO SCH ×2 (09:19→21:37)
[2019-02-08] MEDS: PENTOXIFYLLINE 400 MG TABLET.SA PO SCH ×2 (09:19→17:45)
[2019-02-08] MEDS: SEVELAMER CARBONATE 800 MG TABLET PO SCH ×3 (09:19→17:45)
[2019-02-08] MEDS: APIXABAN 2.5 MG TABLET PO SCH ×2 (09:20→19:37)
[2019-02-08] MEDS: PROSOURCE / PROSTAT (PYXIS) 30 ML UDC GT SCH ×3 (09:21→17:45)
[2019-02-08] MEDS: CHOLECALCIFEROL 1,000 UNIT TABLET (VIT D3) PO SCH (09:30)
[2019-02-08] MEDS: FAMOTIDINE (20 MG) 20 MG TABLET PO SCH (09:31)
[2019-02-08] MEDS: VIT B CMPLX 3/FA/VIT C/BIOTIN 1 TAB TABLET PO SCH (09:31)
[2019-02-08] MEDS: LACTOBACILLUS RHAMNOSUS GG 1 EACH CAP.SPRINK PO SCH ×2 (09:31→17:45)
[2019-02-08] MEDS: ASPIRIN 81 MG TAB.CHEW PO SCH (09:31)
[2019-02-08] MEDS: POLYETHYLENE GLYCOL 3350 17 GM POWD.PACK PO SCH (09:34)
[2019-02-08] MEDS: LEVOTHYROXINE SODIUM 25 MCG TABLET PO SCH (09:35)
[2019-02-08] MEDS: LINEZOLID 600 MG TABLET PO SCH ×2 (09:36→21:37)
[2019-02-08] MEDS: HYDROGEL DRESSING 90 GM TUBE TP SCH ×2 (09:46→21:37)
[2019-02-08] MEDS: DAKINS HALF STRENGTH (0.25%) 480 ML BOTTLE TOP SCH (09:46)
[2019-02-08] MEDS: CLOTRIMAZOLE 1% 15 GM TUBE TP SCH ×2 (13:06→17:45)
[2019-02-08 16:00] VITALS: BP 103/58
[2019-02-08 20:00] VITALS: BP 113/69
[2019-02-08] MEDS: ATORVASTATIN 10 MG TABLET PO SCH (21:37)
[2019-02-08] MEDS: INSULIN REGULAR, HUMAN 100 UNIT/ML 3 ML VIAL SQ PRN (21:42)
[2019-02-09] MEDS: ACETAMINOPHEN 325 MG TABLET PO SCH ×3 (00:06→09:00)
[2019-02-09] MEDS: BLOOD SUGAR DIAGNOSTIC 1 EACH STRIP IN SCH ×2 (06:34→12:00)
[2019-02-09] MEDS: INSULIN REGULAR, HUMAN 100 UNIT/ML 3 ML VIAL SQ PRN (06:35)
[2019-02-09 06:38] LABS: CALCIUM, SERUM 9.2 mg/dL (8.5-10.1); CREATININE 2.8 mg/dL (0.6-1.3); POTASSIUM 3.7 mmol/L (3.5-5.1)
[2019-02-09 08:00] VITALS: BP 112/60
[2019-02-09] MEDS: POLYETHYLENE GLYCOL 3350 17 GM POWD.PACK PO SCH (08:57)
[2019-02-09] MEDS: PROSOURCE / PROSTAT (PYXIS) 30 ML UDC GT SCH ×2 (08:57→13:34)
[2019-02-09] MEDS: ESCITALOPRAM OXALATE (10 MG) 10 MG TABLET PO SCH (08:58)
[2019-02-09] MEDS: LINEZOLID 600 MG TABLET PO SCH (08:58)
[2019-02-09] MEDS: LEVOTHYROXINE SODIUM 25 MCG TABLET PO SCH (08:58)
[2019-02-09] MEDS: ALPRAZOLAM 0.25 MG TABLET PO SCH ×2 (08:58→13:34)
[2019-02-09] MEDS: METHOCARBAMOL (500MG) 500 MG TABLET PO SCH ×2 (08:59→13:34)
[2019-02-09] MEDS: SEVELAMER CARBONATE 800 MG TABLET PO SCH ×2 (08:59→13:34)
[2019-02-09 09:00] VITALS: BP 112/60
[2019-02-09] MEDS: DOCUSATE SODIUM 100 MG CAPSULE PO SCH (09:00)
[2019-02-09] MEDS: FAMOTIDINE (20 MG) 20 MG TABLET PO SCH (09:00)
[2019-02-09] MEDS: VIT B CMPLX 3/FA/VIT C/BIOTIN 1 TAB TABLET PO SCH (09:00)
[2019-02-09] MEDS: BISACODYL SUPP (10 MG) 10 MG/SUPP.RECT SUPP.RECT RC SCH (09:00)
[2019-02-09] MEDS: CHOLECALCIFEROL 1,000 UNIT TABLET (VIT D3) PO SCH (09:00)
[2019-02-09] MEDS: INSULIN GLARGINE, 100 UNIT/ML CARTRIDGE SQ SCH (09:00)
[2019-02-09] MEDS: hydrALAZINE HCL 50 MG TABLET PO SCH (09:00)
[2019-02-09] MEDS: LACTOBACILLUS RHAMNOSUS GG 1 EACH CAP.SPRINK PO SCH (09:00)
[2019-02-09] MEDS: ASPIRIN 81 MG TAB.CHEW PO SCH (09:00)
[2019-02-09] MEDS: AMLODIPINE BESYLATE 10 MG TABLET PO SCH (09:00)
[2019-02-09] MEDS: PENTOXIFYLLINE 400 MG TABLET.SA PO SCH (09:00)
[2019-02-09] MEDS: APIXABAN 2.5 MG TABLET PO SCH (09:01)
[2019-02-09] MEDS: DAKINS HALF STRENGTH (0.25%) 480 ML BOTTLE TOP SCH (09:21)
[2019-02-09] MEDS: CLOTRIMAZOLE 1% 15 GM TUBE TP SCH (09:22)
[2019-02-09] MEDS: HYDROGEL DRESSING 90 GM TUBE TP SCH (09:22)
[2019-02-09] MEDS ORDERED: LINE600T PO (10:17)
[2019-02-09] MEDS ORDERED: RXAMI XX (10:17)
[2019-02-09] MEDS ORDERED: OXYC5CAP18 PO (10:32)
[2019-02-09] MEDS ORDERED: METH500T6 PO (10:32)
== END 2019-02-09 15:18 | DRG 673 ==
LOC: ER 16:57 → MED 19:58
PROVIDERS: ADMIT Student in an Organized Health Care Education/Training Program; ATTEND Family Medicine
PROC: 0JBR0ZZ Excision of Left Foot Subcutaneous Tissue and Fascia, Open Approach (ICD-10-PCS; principal; 2019-02-03)
PROC: 5A1D70Z Performance of Urinary Filtration, Intermittent, Less than 6 Hours Per Day (ICD-10-PCS; 2019-02-04)
DX: N39.0 Urinary tract infection, site not specified (principal); L89.313 Pressure ulcer of right buttock, stage 3; E43 Unspecified severe protein-calorie malnutrition; N18.6 End stage renal disease; L97.528 Non-pressure chronic ulcer of other part of left foot with other specified severity; I12.0 Hypertensive chronic kidney disease with stage 5 chronic kidney disease or end stage renal disease; E11.621 Type 2 diabetes mellitus with foot ulcer; E11.40 Type 2 diabetes mellitus with diabetic neuropathy, unspecified; M10.9 Gout, unspecified; L89.150 Pressure ulcer of sacral region, unstageable; D63.8 Anemia in other chronic diseases classified elsewhere; G89.4 Chronic pain syndrome; L30.4 Erythema intertrigo; Z79.4 Long term (current) use of insulin; Z99.2 Dependence on renal dialysis; R32 Unspecified urinary incontinence; E88.09 Other disorders of plasma-protein metabolism, not elsewhere classified; Z68.36 Body mass index [BMI] 36.0-36.9, adult; E66.9 Obesity, unspecified; E83.9 Disorder of mineral metabolism, unspecified; B96.20 Unspecified Escherichia coli [E. coli] as the cause of diseases classified elsewhere; L98.8 Other specified disorders of the skin and subcutaneous tissue; E03.9 Hypothyroidism, unspecified; E11.22 Type 2 diabetes mellitus with diabetic chronic kidney disease; Z74.01 Bed confinement status; L89.320 Pressure ulcer of left buttock, unstageable; S82.91XS Unspecified fracture of right lower leg, sequela; S82.92XS Unspecified fracture of left lower leg, sequela; D72.829 Elevated white blood cell count, unspecified
CPT/HCPCS: 36415; 71045-TC; 80048-TC; 80061-TC; 80076-TC; 80150; 80202-TC; 81000-TC; 82947-TC; 82962-TC; 83735-TC; 84100-TC; 85025-TC; 86706; 87040-TC; 87070-TC; 87081-TC; 87086-TC; 87186-TC; 87340; 90935-TC; 97530-TC; A4216; A6248; A6253; A6403; G0378; J0278; J0696; J0885; J1170; J1815; J2185; J2270; J2405; J3370; J7060; P9047